=== PATIENT | male | born 1990 ===

== ENCOUNTER 2017-11-28 09:10 | Emergency (ER) | payer OTHER ==
[2017-11-28 09:26] VITALS: BP 121/77; PULSE 60; RESP 18; TEMP 98; O2SAT 100
--- NOTE | 2017-11-28 11:47 | C.PDOC ---
History Of Present Illness 26 y/o male presents to the ER complaining of dry cough, mild nausea, and body aches which have been present for the past 1 week. Patient states that he did not take any medications for his body aches. Patient denies any vomiting.Patient also denies recent travel. Time Seen by Provider: 11/28/17 09:44 Chief Complaint (Nursing): Flu-like Symptoms History Per: Patient History/Exam Limitations: no limitations Onset/Duration Of Symptoms: Days Current Symptoms Are (Timing): Still Present Severity: Moderate Past Medical History Reviewed: Historical Data, Nursing Documentation, Vital Signs Vital Signs: Last Vital Signs Temp 98.0 F 11/28/17 09:23 Pulse 60 11/28/17 09:23 Resp 18 11/28/17 09:23 BP 121/77 11/28/17 09:23 Pulse Ox 100 11/28/17 12:50 - Medical History PMH: No Chronic Diseases Surgical History: No Surg Hx Family History: States: No Known Family Hx - Social History Hx Alcohol Use: No Hx Substance Use: No Review Of Systems Except As Marked, All Systems Reviewed And Found Negative. Constitutional: Positive for: Malaise. Negative for: Fever, Chills Respiratory: Positive for: Cough (dry cough) Gastrointestinal: Positive for: Nausea. Negative for: Vomiting Physical Exam - Physical Exam Appears: Non-toxic, No Acute Distress Skin: Normal Color, Warm Head: Atraumatic, Normacephalic Eye(s): bilateral: Normal Inspection Nose: Normal Oral Mucosa: Moist Throat: Normal, No Erythema, No Exudate Neck: Supple Chest: Symmetrical Cardiovascular: Rhythm Regular Respiratory: Normal Breath Sounds, No Accessory Muscle Use, No Rales, No Rhonchi , No Wheezing Extremity: Normal ROM Pulses: Left Brachial: Normal Neurological/Psych: Oriented x3, Normal Speech, Normal Motor, Normal Sensation ED Course And Treatment O2 Sat by Pulse Oximetry: 100 (RA) Pulse Ox Interpretation: Normal Progress Note: Patient given Toradol IM.Patient discharged and told to follow up with clinic. Disposition - Disposition Referrals: [facility] [Outside] [facility] at [facility] [Outside] Disposition: HOME/ ROUTINE Disposition Time: 09:45 Condition: GOOD Additional Instructions: Thank you for letting us take care of you today. The emergency medical care you received today was directed at your acute symptoms. If you were prescribed any medication, please fill it and take as directed. It may take several days for your symptoms to resolve. Return to the Emergency Department if your symptoms worsen, do not improve, or if you have any other problems. Please contact your doctor or call one of the physicians/clinics you have been referred to that are listed on the Patient Visit Information form that is included in your discharge packet. Bring any paperwork you were given at discharge with you along with any medications you are taking to your follow up visit. Our treatment cannot replace ongoing medical care by a primary care provider (PCP) outside of the emergency department. Thank you for allowing the [facility] team to be part of your care today. Follow up with the clinic this week for re-evaluation and further management. Manuela por dejarnos atenderlo hoy. La atencin mdica de emergencia que recibi hoy estaba dirigida a molly sntomas agudos. Si le prescribieron algn medicamento, llnelo y tome segn las indicaciones. Molly sntomas pueden tardar varios mccormick en resolverse. Regrese al Departamento de Emergencia si molly s ntomas empeoran, no mejoran o si tiene algn otro problema. Comunquese con crisostomo mdico o llame a melissa de los mdicos / clnicas a los que sands sido referido que figura en el formulario de Informacin de visita del paciente que se incluye en crisostomo paquete de maxine. Traiga todos los documentos que recibi al momento del maxine junto con los medicamentos que est tomando en crisostomo visita de seguimiento. Nuestro tratamiento no puede reemplazar la atencin mdica en curso por parte de un proveedor de atencin primaria (PCP) fuera del departamento de emergencias. Manuela por permitir que el equipo de [facility] sea parte de crisostomo cuidado hoy. Abilio un seguimiento con la clnica esta semana para capri reevaluacin y administracin adicional. Prescriptions: Ibuprofen [Motrin] 600 mg PO Q6 PRN #20 tab PRN Reason: Pain, Moderate (4-7) Ondansetron ODT [Zofran ODT] 8 mg PO Q8 PRN #20 odt PRN Reason: Nausea/Vomiting Instructions: Viral Syndrome (DC) Forms: Gen Discharge Inst Burkinan, [facility] (Zimbabwean) Print Language: BURUNDIAN - Clinical Impression Clinical Impression: Viral syndrome - Scribe Statement The provider has reviewed the documentation as recorded by the Abdulkadir Parnell Provider Attestation: All medical record entries made by the Abdulkadir were at my direction and personally dictated by me. I have reviewed the chart and agree that the record accurately reflects my personal performance of the history, physical exam, medical decision making, and the department course for this patient. I have also personally directed, reviewed, and agree with the discharge instructions and disposition.
== END 2017-11-28 10:21 | disposition home or self-care (01) ==
LOC: C.ER 09:10
DX: B34.9 Viral infection, unspecified (principal)
CPT/HCPCS: 96372; 99283; J1885

== ENCOUNTER 2018-05-06 09:13 | Emergency (ER) | payer OTHER ==
[2018-05-06 09:17] VITALS: BP 137/75; PULSE 92; RESP 18; TEMP 98.7; O2SAT 100
--- NOTE | 2018-05-06 09:28 | C.PDOC ---
History Of Present Illness Patient is a 27 y/o M presenting with 5 day history of back pain. 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 He reports that the pain is worse with movement. Denies weakness, numbness, tingling. Denies midline pain. Denies direct trauma. Denies dysuria, hematuria, fever, nausea/vomiting, constipation or changes in bowel or bladder habits. Time Seen by Provider: 05/06/18 09:20 Chief Complaint (Nursing): Back Pain Past Medical History Vital Signs: Last Vital Signs Temp 98.7 F 05/06/18 09:16 Pulse 92 H 05/06/18 09:16 Resp 18 05/06/18 09:16 BP 137/75 05/06/18 09:16 Pulse Ox 100 05/06/18 09:28 - Medical History PMH: No Chronic Diseases Family History: States: No Known Family Hx - Social History Hx Alcohol Use: No Hx Substance Use: No Review Of Systems Constitutional: Negative for: Fever, Chills, Malaise, Weight loss Cardiovascular: Negative for: Chest Pain Respiratory: Negative for: Cough, Shortness of Breath Gastrointestinal: Negative for: Nausea, Vomiting, Abdominal Pain, Diarrhea, Constipation Genitourinary: Negative for: Dysuria, Frequency, Incontinence, Hematuria, Penile Discharge, Scrotal Pain Musculoskeletal: Positive for: Back Pain. Negative for: Neck Pain, Shoulder Pain Skin: Negative for: Rash Neurological: Negative for: Weakness, Numbness, Incoordination, Headache Physical Exam - Physical Exam Appears: Well, Non-toxic, No Acute Distress Skin: Normal Color, Warm, Dry Head: Atraumatic, Normacephalic Eye(s): bilateral: Normal Inspection, PERRL, EOMI Neck: Supple Cardiovascular: Rhythm Regular Respiratory: Normal Breath Sounds Gastrointestinal/Abdominal: Soft, No Tenderness, No Distention Back: No Vertebral Tenderness, Muscle Spasm, Paraspinal Tenderness Extremity: Normal ROM Neurological/Psych: Oriented x3, Normal Speech, Normal Cranial Nerves, Normal Motor, Normal Sensation Gait: Steady (ambulated into fast track with steady gait) ED Course And Treatment O2 Sat by Pulse Oximetry: 100 Progress Note: Presentation consistent with muscle spasm. No midline tenderness. Patient neurologically intact. Given toradol, valium and flexeril. On reevaluation he reports that he feels better. Disposition - Disposition Disposition: HOME/ ROUTINE Disposition Time: 09:51 Condition: GOOD Additional Instructions: Follow up with PMD within 2 days. Return to ED if condition worsens. Motrin for pain. Flexeril for muscle spasm. Prescriptions: Cyclobenzaprine [Cyclobenzaprine HCl] 10 mg PO TID #15 tab Instructions: Low Back Pain in Adults, Lumbar Muscle Strain Forms: [facility] (Faroese), Work Excuse - Clinical Impression Clinical Impression: Low back pain, Lumbar sprain
== END 2018-05-06 10:10 | disposition home or self-care (01) ==
LOC: C.ER 09:13
DX: S33.5XXA Sprain of ligaments of lumbar spine, initial encounter (principal); X58.XXXA Exposure to other specified factors, initial encounter
CPT/HCPCS: 96372; 99284; J1885

== ENCOUNTER 2018-09-12 11:56 | Emergency (ER) | payer OTHER ==
[2018-09-12 12:00] VITALS: BP 131/78; PULSE 79; RESP 16; TEMP 98.9; O2SAT 100
[2018-09-12] MEDS ORDERED: Tdap Vaccine 0.5 ml Vial (10-64 yrs) IM ONE ×2 (12:19→12:28)
--- NOTE | 2018-09-12 12:53 | RAD ---
Date of service: 09/12/2018 PROCEDURE: Left Index finger radiographs. HISTORY: pain s.p injury with nail gun COMPARISON: None. TECHNIQUE: AP radiograph of the left hand, as well as spot oblique and lateral images of index finger were obtained. FINDINGS: LEFT INDEX FINGER: Transverse nondisplaced fracture through the proximal diaphysis of the 2nd distal phalanx. No other fracture identified. Remainder of the left hand (as seen on the AP view) grossly intact. JOINTS: Normal. SOFT TISSUES: Normal. OTHER FINDINGS: None. IMPRESSION: Nondisplaced transverse fracture of the 2nd distal phalanx.
--- NOTE | 2018-09-12 13:14 | C.PDOC ---
History Of Present Illness 27 year old male presents to the ED for evaluation after he sustained an injury to left index finger yesterday at work. He states he was using nail gun and nail went through his finger. He pulled it out and cleaned wound. Patient has constant throbbing pain and finger looks swollen. He is not UTD with Tetanus. He denies sensorivascular changes to the area. Time Seen by Provider: 09/12/18 12:18 Chief Complaint (Nursing): Upper Extremity Problem/Injury History Per: Patient History/Exam Limitations: no limitations Onset/Duration Of Symptoms: Hrs Current Symptoms Are (Timing): Still Present Quality: "Pain", Other (throbbing ) Additional History Per: Patient Past Medical History Reviewed: Historical Data, Nursing Documentation, Vital Signs Vital Signs: Last Vital Signs Temp 98.9 F 09/12/18 11:58 Pulse 79 09/12/18 11:58 Resp 16 09/12/18 11:58 BP 131/78 09/12/18 11:58 Pulse Ox 100 09/12/18 11:58 - Medical History PMH: No Chronic Diseases Surgical History: No Surg Hx Family History: States: Unknown Family Hx - Social History Hx Alcohol Use: No Hx Substance Use: No - Immunization History Hx Tetanus Toxoid Vaccination: No Hx Influenza Vaccination: No Hx Pneumococcal Vaccination: No Review Of Systems Skin: Positive for: Other (injury to left index finger ) Neurological: Negative for: Weakness, Numbness Physical Exam - Physical Exam Appears: Non-toxic, No Acute Distress Skin: Warm, Dry, Other (Left second fingertip with entry/exit wound medial and lateral side of digit, no bleeding. Digit fingertip is swollen and tender, nail intact.) Extremity: Normal ROM, Capillary Refill (less than 2 seconds ) Pulses: Left Radial: Normal, Right Radial: Normal Neurological/Psych: Oriented x3, Normal Speech, Normal Cognition, Normal Se nsation ED Course And Treatment O2 Sat by Pulse Oximetry: 100 (on RA) Pulse Ox Interpretation: Normal - Other Rad left hand xr X-Ray: Viewed By Me, Read By Radiologist Interpretation: Date of service: 09/12/2018. PROCEDURE: Left Index finger radiographs. HISTORY: pain s.p injury with nail gun. COMPARISON: None. TECHNIQUE: AP radiograph of the left hand, as well as spot oblique and lateral images of index finger were obtained. FINDINGS: LEFT INDEX FINGER: Transverse nondisplaced fracture through the proximal diaphysis of the 2nd distal phalanx. No other fracture identified. Remainder of the left hand (as seen on the AP view) grossly intact. JOINTS: Normal. SOFT TISSUES: Normal. OTHER FINDINGS: None. IMPRESSION: Nondisplaced transverse fracture of the 2nd distal phalanx. Medical Decision Making Medical Decision Making: Impression: Finger injury Plan: * Xray * Tetanus * Tramadol Progress: XR shows nondisplaced transverse fracture of the 2nd distal phalanx. Finger splint applied by emergency room tech and was checked by me. On reassessment, patient is resting comfortably, showing no signs of distress and is stable for discharge. Patient is advised to follow up with orthopedic care/PMD within 1-2 days for further evaluation. Disposition Counseled Patient/Family Regarding: Diagnosis, Need For Followup, Rx Given - Disposition Referrals: Lupillo Uribe MD [Staff Provider] - Melinda Terry MD [Staff Provider] - Disposition: HOME/ ROUTINE Disposition Time: 13:14 Condition: GOOD Additional Instructions: Mcgregor radiografa muestra fractura a la segunda punta del dedo elena. Debe usar frula para los dedos shmuel 3-4 semanas. Seguimiento con ortopedia. [place] analgsicos segn sea necesario. Puede aplicar hielo para la hinchazn. 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 - Scribe Statement The provider has reviewed the documentation as recorded by the Scribe (Elena Malloy) All medical record entries made by the Scribe were at my direction and personally dictated by me. I have reviewed the chart and agree that the record accurately reflects my personal performance of the history, physical exam, medical decision making, and the department course for this patient. I have also personally directed, reviewed, and agree with the discharge instructions and disposition.
== END 2018-09-12 13:21 | disposition home or self-care (01) ==
LOC: C.ER 11:56
DX: S62.661A Nondisplaced fracture of distal phalanx of left index finger, initial encounter for closed fracture (principal); W29.4XXA Contact with nail gun, initial encounter; Y92.89 Other specified places as the place of occurrence of the external cause; Y99.0 Civilian activity done for income or pay

== ENCOUNTER 2019-02-11 21:06 | Emergency (ER) | payer OTHER ==
[2019-02-11 21:20] VITALS: BP 145/80; RESP 20; O2SAT 98
[2019-02-11] MEDS ORDERED: Lidocaine 5% Patch TD STA (21:47)
[2019-02-11] MEDS ORDERED: Naproxen 550 mg Tab PO STA (21:47)
--- NOTE | 2019-02-11 21:48 | C.PDOC ---
History Of Present Illness 28-year-old male presents to the ED for evaluation of right shoulder pain that has been intermittent for 3 months. 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 Patient has not seen his PMD for these symptoms and has not taken anything for the pain. Patient denies direct trauma/injury to the site or extremity numbness/weakness. Chief Complaint (Nursing): Upper Extremity Problem/Injury History Per: Patient History/Exam Limitations: no limitations Onset/Duration Of Symptoms: Intermittent Episodes, Other (3 months ) Current Symptoms Are (Timing): Still Present Quality: "Pain" Additional History Per: Patient Past Medical History Reviewed: Historical Data, Nursing Documentation, Vital Signs Vital Signs: Last Vital Signs Temp 98 F 02/11/19 21:14 Pulse 80 02/11/19 21:14 Resp 20 02/11/19 21:14 BP 145/80 02/11/19 21:14 Pulse Ox 98 02/11/19 21:14 Primary Care Provider: FAMILY PROVIDER,NO - Medical History PMH: No Chronic Diseases Surgical History: No Surg Hx Family History: States: Unknown Family Hx - Social History Hx Alcohol Use: No Hx Substance Use: No - Immunization History Hx Tetanus Toxoid Vaccination: No Hx Influenza Vaccination: No Hx Pneumococcal Vaccination: No Review Of Systems Musculoskeletal: Positive for: Shoulder Pain (right). Negative for: Arm Pain, Leg Pain Skin: Negative for: Rash, Bruising Neurological: Negative for: Weakness, Numbness Physical Exam - Physical Exam Appears: Non-toxic, No Acute Distress Skin: Normal Color, Warm, Dry Head: Atraumatic, Normacephalic Neck: Normal ROM, Supple Chest: Symmetrical Cardiovascular: Rhythm Regular Respiratory: Normal Breath Sounds, No Wheezing Back: No CVA Tenderness Extremity: Normal ROM (intact, but limited in right shoulder secondary to pain ), Tenderness (to anterior and posterior aspects of right shoulder ), Capillary Refill (less than 2 seconds ), No Deformity, No Swelling, No Other (ecchymosis, edema or erythema to right shoulder) Extremity: Bilateral: Atraumatic Neurological/Psych: Oriented x3, Normal Speech, Normal Cognition, Normal Motor, Normal Sensation ED Course And Treatment O2 Sat by Pulse Oximetry: 98 (on RA ) Pulse Ox Interpretation: Normal Medical Decision Making Medical Decision Making: Impression: 28-year-old male with right shoulder pain Plan: * Naproxen PO and Lidoderm TD given. On reassessment, patient is resting comfortably, showing no signs of distress and reports an improvement in his pain. Patient is stable for discharge and is advised to follow up with his PMD within 1-2 days for further evaluation and possible MRI. Disposition Counseled Patient/Family Regarding: Diagnosis, Need For Followup, Rx Given - Disposition Referrals: [facility] [Outside] [facility] at [Outside] Disposition: HOME/ ROUTINE Disposition Time: 22:15 Condition: IMPROVED Additional Instructions: Continue Naproxen and Lidoderm patches as needed for pain Rest, Ice, Compression, and Elevation Follow up in Ortho clinic for further evaluation- MRI may be warranted Return to the ED if symptoms worsen Prescriptions: Lidocaine 5% [Lidoderm] 1 patch TP PRN PRN #30 patch PRN Reason: Pain, Moderate (4-7) Naproxen [Naprosyn] 500 mg PO BID #30 tablet Instructions: Shoulder Pain (DC) Forms: [facility] (Turkish), [facility] ([place] Islander) Print Language: PORTUGUESE - Clinical Impression Clinical Impression: Right shoulder pain - PA / 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 - Scribe Statement The provider has reviewed the documentation as recorded by the Scribe (Elena Malloy) All medical record entries made by the Scribe were at my direction and persona pavely dictated by me. I have reviewed the chart and agree that the record accurately reflects my personal performance of the history, physical exam, medical decision making, and the department course for this patient. I have also personally directed, reviewed, and agree with the discharge instructions and disposition.
--- NOTE | 2019-02-11 22:04 | C.PDOC ---
Chief Complaint (Nursing): Upper Extremity Problem/Injury Past Medical History Vital Signs: Last Vital Signs Temp 98 F 02/11/19 21:14 Pulse 80 02/11/19 21:14 Resp 20 02/11/19 21:14 BP 145/80 02/11/19 21:14 Pulse Ox 98 02/11/19 21:14 Primary Care Provider: FAMILY PROVIDER,NO Family History: States: Unknown Family Hx - Social History Hx Alcohol Use: No Hx Substance Use: No - Immunization History Hx Tetanus Toxoid Vaccination: No Hx Influenza Vaccination: No Hx Pneumococcal Vaccination: No ED Course And Treatment O2 Sat by Pulse Oximetry: 98 Disposition Counseled Patient/Family Regarding: Diagnosis, Need For Followup, Rx Given - Disposition Referrals: [facility] [Outside] [facility] at [Outside] Disposition: HOME/ ROUTINE Disposition Time: 22:04 Condition: IMPROVED Additional Instructions: Continue Naproxen and Lidoderm patches as needed for pain Rest, Ice, Compression, and Elevation Follow up in Ortho clinic for further evaluation- MRI may be warranted Return to the ED if symptoms worsen Prescriptions: Lidocaine 5% [Lidoderm] 1 patch TP PRN PRN #30 patch PRN Reason: Pain, Moderate (4-7) Naproxen [Naprosyn] 500 mg PO BID #30 tablet Instructions: Shoulder Pain (DC) Forms: [employer] (Sinhala), [facility] (Maltese) Print Language: KENYAN - Clinical Impression Clinical Impression: Right shoulder pain
[2019-02-11] MEDS ORDERED: Naproxen 550 mg Tab PO ONE (22:06)
[2019-02-11] MEDS ORDERED: Lidocaine 5% Patch TD ONE (22:07)
[2019-02-11 22:30] VITALS: PULSE 78; TEMP 98.2
== END 2019-02-11 22:29 | disposition home or self-care (01) ==
LOC: C.ER 21:06
DX: M25.511 Pain in right shoulder (principal)